=== PATIENT | male | born 1985 | race Caucasian/White ===

== ENCOUNTER 2016-11-30 23:14 | Emergency (ER) | payer MEDICAID ==
[2016-11-30 23:14] VITALS: BMI 28.1
[2016-11-30 23:36] VITALS: BP 124/73; PULSE 70; RESP 20; TEMP 97.9; O2SAT 97
--- NOTE | 2016-12-01 00:04 | C.PDOC ---
History Of Present Illness 31 y/o male with PMHx of herpes simplex presents to ED requesting medication refill. Patient is on Valtrex 1g daily for suppression and states he ran out of medication. Patient is also requesting refill of Mupirocin for his chronic rash. Denies any lesions. Otherwise, patient denies any other complaints. Time Seen by Provider: 11/30/16 23:50 Chief Complaint (Nursing): Abnormal Skin Integrity History Per: Patient History/Exam Limitations: no limitations Onset/Duration Of Symptoms: Persistent Current Symptoms Are (Timing): Still Present Recent travel outside of the [place]: No Past Medical History Reviewed: Historical Data, Nursing Documentation, Vital Signs Vital Signs: Last Vital Signs Temp 97.9 F 11/30/16 23:33 Pulse 70 11/30/16 23:33 Resp 20 11/30/16 23:33 BP 124/73 11/30/16 23:33 Pulse Ox 97 12/01/16 00:12 - Medical History PMH: Sexually Transmitted Disease (PT TAKES VALTREX PRN) Surgical History: Appendectomy - [facility] Procedures APPLICATION OF SPLINT (04/20/15) LAPAROSCOP APPENDECTOMY (10/23/13) SUTURE OF LIP LACERATION (04/20/15) TETANUS TOXOID ADMINIST (04/20/15) Family History: States: Unknown Family Hx - Social History Hx Tobacco Use: Yes Hx Alcohol Use: No Hx Substance Use: No - Immunization History Hx Tetanus Toxoid Vaccination: No Hx Influenza Vaccination: No Hx Pneumococcal Vaccination: No Review Of Systems Except As Marked, All Systems Reviewed And Found Negative. Constitutional: Negative for: Fever, Chills Genitourinary: Negative for: Dysuria, Penile Discharge, Penile Pain Skin: Negative for: Rash Physical Exam - Physical Exam Appears: Non-toxic, No Acute Distress Skin: Normal Color, Warm, Dry, Rash (chronic dry scaly rash with some erythema on arms / hands) Head: Atraumatic, Normacephalic Eye(s): bilateral: Normal Inspection, PERRL Oral Mucosa: Moist Male Genital: Other (patient refuses genital exam) Neurological/Psych: Oriented x3, Normal Speech, Normal Cognition Gait: Steady ED Course And Treatment O2 Sat by Pulse Oximetry: 97 (RA) Pulse Ox Interpretation: Normal Progress Note: On reassessment, patient is resting comfortably, and is in no acute distress. Patient instructed to follow up with clinic/PMD within 1-2 days and advised to take prescribed medications as directed. 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 - Scribe Statement The provider has reviewed the documentation as recorded by the Claude Lynch Provider [place] Attestation: All medical record entries made by the Claude were at my direction and personally dictated by me. I have reviewed the chart and agree that the record accurately reflects my personal performance of the history, physical exam, medical decision making, and the department course for this patient. I have also personally directed, reviewed, and agree with the discharge instructions and disposition.
== END 2016-12-01 00:11 | disposition home or self-care (01) ==
LOC: C.ER 23:14
DX: Z76.0 Encounter for issue of repeat prescription (principal); A60.00 Herpesviral infection of urogenital system, unspecified

== ENCOUNTER 2017-07-24 10:54 | Emergency (ER) | payer MEDICAID ==
[2017-07-24 10:54] VITALS: BMI 28.1
[2017-07-24 11:01] VITALS: O2SAT 100
[2017-07-24 11:28] LABS: URINE BILIRUBIN NEGATIVE (NEGATIVE); URINE BLOOD NEGATIVE (NEGATIVE); URINE COLOR Colorless (YELLOW); URINE GLUCOSE (UA) NORMAL (Normal); URINE KETONE NEGATIVE (NEGATIVE); URINE LEUKOCYTE ESTERASE NEG Leu/uL (Negative); URINE PROTEIN NEGATIVE (NEGATIVE); URINE UROBILINOGEN NORMAL mg/dL (0.2-1.0)
[2017-07-24] MEDS ORDERED: Iohexol 240 (50 ml) PO STA (11:58)
--- NOTE | 2017-07-24 11:58 | C.PDOC ---
History Of Present Illness 31 year old male presents to the ED for recurrent suprapubic discomfort for 1 day. Patient reports intermittent dysuria for 3 months. Patient initially saw PMD for same complaints and was given unknown antibiotics. Patient's symptoms recurred and he followed up with Dr. Coats. He is currently on Bactrim x 6 days. Patient states symptoms initially resolved but have now reoccurred again. Pain is localized and suprapubic, worse with abdominal "crunching" movement. Patient denies dysuria, mass, fever, nausea, vomiting. Past surgical history appendectomy. Patient was tested for GC by PMD, and states "He said it was negative." RECUR SUPRAPUB DISCOMFORT X 1 DAY. INTERMIT DYSURIA 3 MO, INITIALLY SAW PMD FOR SAME GIVEN UNK ABX. SX RECURRED, FU W DR COATS. CURRENTLY ON BACTRIM X 6 DAYS. PS SX INITIALLY RESOLVED BUT NOW RECUR AGAIN. PAIN LOCALIZED SUPRAPUBIC, WORSE W ABD "CRUNCHING" MOVEMENT. NO DYSURIA. NO MASS, FEVER, NV. PSX APPY. PS WAS TESTED FOR GC BY PMD, "HE SAID IT WAS NEGATIVE" EXAM NAD ABD NEG UNCIRCUM NO LESIONS, NO HERNIA REMAINDER NEG Time Seen by Provider: 07/24/17 11:22 Chief Complaint (Nursing): Male Genitourinary History Per: Patient History/Exam Limitations: no limitations Onset/Duration Of Symptoms: Intermittent Episodes, Persistent Current Symptoms Are (Timing): Still Present Quality Of Discomfort: "Pain" Associated Symptoms: denies: Fever, Nausea, Vomiting Additional History Per: Patient Past Medical History Reviewed: Historical Data, Nursing Documentation, Vital Signs Vital Signs: Last Vital Signs Temp 97.6 F 07/24/17 14:41 Pulse 67 07/24/17 14:41 Resp 20 07/24/17 14:41 BP 116/73 07/24/17 14:41 Pulse Ox 100 07/24/17 14:41 - Medical History PMH: Sexually Transmitted Disease (PT TAKES VALTREX PRN) Surgical History: Appendectomy - [facility] Procedures APPLICATION OF SPLINT (04/20/15) LAPAROSCOP APPENDECTOMY (10/23/13) SUTURE OF LIP LACERATION (04/20/15) TETANUS TOXOID ADMINIST (04/20/15) Family History: States: Unknown Family Hx - Social History Hx Tobacco Use: Yes Hx Alcohol Use: No Hx Substance Use: No - Immunization History Hx Tetanus Toxoid Vaccination: No Hx Influenza Vaccination: No Hx Pneumococcal Vaccination: No Review Of Systems Gastrointestinal: Positive for: Abdominal Pain (suprapubic ). Negative for: Nausea, Vomiting, Other (mass) Genitourinary: Negative for: Dysuria Physical Exam - Physical Exam Appears: Non-toxic, No Acute Distress Skin: Normal Color, Warm, Dry Head: Atraumatic, Normacephalic Eye(s): bilateral: Normal Inspection Oral Mucosa: Moist Neck: Supple Chest: Symmetrical, No Deformity, No Tenderness Cardiovascular: Rhythm Regular, No Murmur Respiratory: Normal Breath Sounds, No Rales, No Rhonchi, No Wheezing Gastrointestinal/Abdominal: Soft, No Tenderness, No Guarding, No Rebound Male Genital: No Circumcised, No Other (lesions or hernia ) Extremity: Normal ROM, Capillary Refill (less than 2 seconds ) Neurological/Psych: Oriented x3, Normal Speech, Normal Cognition Gait: Steady ED Course And Treatment - Laboratory Results Result Diagrams: 07/24/17 12:05 07/24/17 12:05 O2 Sat by Pulse Oximetry: 100 (on RA) Pulse Ox Interpretation: Normal - CT Scan/US CT Head Other Rad Studies (CT/US): Read By Radiologist CT/US Interpretation: IMPRESSION: 4 millimeter nonobstructive calculus in the midpole of the right kidney. Moderate fecal retention in the colon. Progress Note: Bloodwork, UA, CT A/P ordered and reviewed. Toradol IVP administered. Progress - Re-Evaluation Re-evaluation Note: 07/24/17 14:31 SP TORADOL FEELS BETTER. APPEARS COMFORTABLE NAD ADVISED FU - Data Reviewed Data Reviewed: Lab, Diagnostic imaging Disposition Counseled Patient/Family Regarding: Studies Performed, Diagnosis, Need For Followup - Disposition Referrals: YOUR,UROLOGIST [Other] Disposition: HOME/ ROUTINE Disposition Time: 14:31 Condition: IMPROVED Instructions: Constipation (ED), High Fiber Diet (ED), Abdominal Pain (ED) Forms: [employer] (Faroese) - Clinical Impression Clinical Impression: Abdominal wall pain, Constipation - Scribe Statement The provider has reviewed the documentation as recorded by the Scribe (Kadie Lee) Provider Attestation: All medical record entries made by the Scribe were at my direction and personally dictated by me. I have reviewed the chart and agree that the record accurately reflects my personal performance of the history, physical exam, medical decision making, and the department course for this patient. I have also personally directed, reviewed, and agree with the discharge instructions and disposition.
[2017-07-24] MEDS ORDERED: Iohexol 240 (50 ml) ONE (12:09)
[2017-07-24 12:10] LABS: BASO % 0.3 % (0.0-2.0); EOS # 0.1 K/uL (0.0-0.7); EOS % 1.3 % (0.0-4.0); HEMATOCRIT 43.7 % (35.0-51.0); LYMPH # 1.8 K/uL (1.0-4.3); LYMPH % 40.5 % (20.0-40.0); MEAN CELL VOLUME 93.9 fL (80.0-94.0); MEAN CORPUSCULAR HEMOGLOBIN 32.3 pg (27.0-31.0); MEAN CORPUSCULAR HGB CONC 34.4 g/dL (33.0-37.0); MEAN PLATELET VOLUME 7.2 fL (7.2-11.7); MONO # 0.4 K/uL (0.0-0.8); NRBC % 0.2 % (0.0-2.0); RED CELL DISTRIBUTION WIDTH 12.7 % (11.5-14.5); WHITE BLOOD COUNT 4.4 K/uL (4.8-10.8)
[2017-07-24 12:21] LABS: BLOOD UREA NITROGEN 11 mg/dL (9-20); CALCIUM 8.6 mg/dl (8.6-10.4); CARBON DIOXIDE 25 mmol/L (22-30); CHLORIDE 98 mmol/L (98-107); GFR AFRICAN-AMERICAN > 60; GLUCOSE,RANDOM 81 mg/dL (75-110); POTASSIUM 4.5 mmol/L (3.6-5.2); SODIUM 135 mmol/L (132-148)
[2017-07-24] MEDS ORDERED: Iohexol 300 100 ML IJ ONE (12:42)
--- NOTE | 2017-07-24 14:26 | CT ---
PROCEDURE: CT Abdomen and Pelvis with contrast HISTORY: Suprapubic abdominal pain COMPARISON: CT dated 10/23/2013 TECHNIQUE: Multiple contiguous axial images were performed through the abdomen and pelvis with the use of intravenous contrast. Subsequently, sagittal and coronal reformatted images were obtained. Radiation dose: Total exam DLP = 419 mGy-cm. This CT exam was performed using one or more of the following dose reduction techniques: Automated exposure control, adjustment of the mA and/or kV according to patient size, and/or use of iterative reconstruction technique. FINDINGS: LOWER THORAX: Unremarkable. LIVER: Heterogeneous attenuation predominantly in the right hepatic lobe of uncertain etiology. This may be related to some streak artifact adjacent contrast in the colon. GALLBLADDER AND BILE DUCTS: Unremarkable. PANCREAS: Unremarkable. No gross lesion or ductal dilatation. SPLEEN: Unremarkable. ADRENALS: Unremarkable. No mass. KIDNEYS AND URETERS: 4 millimeter nonobstructive calculus in the midpole of the right kidney. VASCULATURE: Unremarkable. No aortic aneurysm. BOWEL: Moderate fecal retention in the colon. APPENDIX: Not well identified. PERITONEUM: Unremarkable. No free fluid. No free air. LYMPH NODES: Few shotty para-aortic and mesenteric lymph nodes. BLADDER: Unremarkable. REPRODUCTIVE: Unremarkable. BONES: No acute fracture. OTHER FINDINGS: None. IMPRESSION: 4 millimeter nonobstructive calculus in the midpole of the right kidney. Moderate fecal retention in the colon.
[2017-07-24 14:42] VITALS: BP 116/73; PULSE 67; RESP 20; TEMP 97.6
== END 2017-07-24 14:41 | disposition home or self-care (01) ==
LOC: C.ER 10:54
DX: K59.00 Constipation, unspecified (principal); R10.30 Lower abdominal pain, unspecified
CPT/HCPCS: 74177; 80048; 81001; 85025; 87086; 87491; 87591; 96374; 99284; J1885; Q9966; Q9967

== ENCOUNTER 2018-04-26 05:24 | Emergency (ER) | payer MEDICAID ==
[2018-04-26 05:24] VITALS: BMI 28.1
[2018-04-26 05:35] VITALS: BP 137/93; PULSE 94; RESP 20; TEMP 98.7; O2SAT 96
--- NOTE | 2018-04-26 05:45 | C.PDOC ---
History Of Present Illness 32yo male, comes to ER with complaint of left sided ear discomfort. Patient states he recetnly returned from vacation in [place] and states while there , he was swimming and jet-skiing frequently. He reports feeling clogged/blocked sensation to his left ear and states the discomfort worsened today, prompting ER visit. Otherwise, denies any fever, chills, throat pain, cough, and offers no other complaints. Time Seen by Provider: 04/26/18 05:26 Chief Complaint (Nursing): ENT Problem History Per: Patient History/Exam Limitations: None Onset/Duration Of Symptoms: Days Current Symptoms Are (Timing): Still Present Quality (Ear): Other (fullness/ "clogged") Past Medical History Reviewed: Historical Data, Nursing Documentation, Vital Signs Vital Signs: Last Vital Signs Temp 98.7 F 04/26/18 05:30 Pulse 94 H 04/26/18 05:30 Resp 20 04/26/18 05:30 BP 137/93 H 04/26/18 05:30 Pulse Ox 96 04/26/18 05:53 - Medical History PMH: No Chronic Diseases, Sexually Transmitted Disease (PT TAKES VALTREX PRN) Surgical History: Appendectomy - [facility] Procedures APPLICATION OF SPLINT (04/20/15) LAPAROSCOP APPENDECTOMY (10/23/13) SUTURE OF LIP LACERATION (04/20/15) TETANUS TOXOID ADMINIST (04/20/15) Family History: States: Unknown Family Hx - Social History Hx Tobacco Use: Yes Hx Alcohol Use: No Hx Substance Use: No - Immunization History Hx Tetanus Toxoid Vaccination: No Hx Influenza Vaccination: No Hx Pneumococcal Vaccination: No Review Of Systems Except As Marked, All Systems Reviewed And Found Negative. Constitutional: Negative for: Fever, Chills ENT: Positive for: Other (ear fullness and discomfort). Negative for: Throat Pain Respiratory: Negative for: Cough Physical Exam - Physical Exam Appears: Non-toxic, No Acute Distress Skin: Normal Color, Warm Head: Atraumatic, Normacephalic Eye(s): bilateral: Normal Inspection, PERRL, EOMI Ear(s): Left: Other (dried blood in canal; TM perforated), Right: Normal Nose: Normal, No Discharge Oral Mucosa: Moist Throat: Normal, No Erythema, No Exudate, No Drooling, No Mass Neck: Normal ROM, Supple Chest: Symmetrical Cardiovascular: Rhythm Regular, No Friction Rub, No Murmur Respiratory: Normal Breath Sounds, No Wheezing Neurological/Psych: Oriented x3 ED Course And Treatment O2 Sat by Pulse Oximetry: 96 (RA) Pulse Ox Interpretation: Normal Medical Decision Making Medical Decision Making: Impression: Ruptured eardrum Plan: * Amoxicillin 500mg PO Patient instructed to take antibiotics as prescribed and to follow up with ENT specialist. 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 - Scribe Statement The provider has reviewed the documentation as recorded by the Claude Joe Provider Attestation: All medical record entries made by the Claude were at my direction and personally dictated by me. I have reviewed the chart and agree that the record accurately reflects my personal performance of the history, physical exam, medical decision making, and the department course for this patient. I have also personally directed, reviewed, and agree with the discharge instructions and disposition.
== END 2018-04-26 06:04 | disposition home or self-care (01) ==
LOC: C.ER 05:24
DX: H72.92 Unspecified perforation of tympanic membrane, left ear (principal)

== ENCOUNTER 2018-05-24 14:24 | Emergency (ER) | payer MEDICAID ==
[2018-05-24 14:24] VITALS: BMI 28.1
[2018-05-24 14:30] VITALS: RESP 18; TEMP 98.3; O2SAT 97
--- NOTE | 2018-05-24 15:51 | C.PDOC ---
History Of Present Illness 32 year old male presents to ED for evaluation of left posterior rib pain s/p injury after falling while rollerskating 5 days ago. 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 Denies LOC, SOB, pleuritic pain, head injury, tingling, dizziness, fever, nausea, vomiting and other associated symptoms. Time Seen by Provider: 05/24/18 14:29 Chief Complaint (Nursing): Rib Injury History Per: Patient History/Exam Limitations: no limitations Onset/Duration Of Symptoms: Days Current Symptoms Are (Timing): Still Present Past Medical History Reviewed: Historical Data, Nursing Documentation, Vital Signs Vital Signs: Last Vital Signs Temp 98.3 F 05/24/18 14:28 Pulse 73 05/24/18 14:28 Resp 18 05/24/18 14:28 BP 123/78 05/24/18 14:28 Pulse Ox 97 05/24/18 15:51 - Medical History PMH: Sexually Transmitted Disease (PT TAKES VALTREX PRN) Surgical History: Appendectomy - [facility] Procedures APPLICATION OF SPLINT (04/20/15) LAPAROSCOP APPENDECTOMY (10/23/13) SUTURE OF LIP LACERATION (04/20/15) TETANUS TOXOID ADMINIST (04/20/15) Family History: States: Unknown Family Hx - Social History Hx Tobacco Use: Yes Hx Alcohol Use: No Hx Substance Use: No - Immunization History Hx Tetanus Toxoid Vaccination: No Hx Influenza Vaccination: No Hx Pneumococcal Vaccination: No Review Of Systems Constitutional: Negative for: Fever, Chills Gastrointestinal: Negative for: Nausea, Vomiting Musculoskeletal: Positive for: Other (left posterior rib pain ) Neurological: Negative for: Weakness, Numbness, Incoordination Physical Exam - Physical Exam Appears: Non-toxic, No Acute Distress, Other (comfortable) Skin: Warm, Dry Head: Atraumatic, Normacephalic Chest: Symmetrical, No Deformity, Tenderness (to palpation on the left posterior rib approximately around the 9-10 rib. No crepitus ), No Ecchymosis Cardiovascular: Rhythm Regular Respiratory: Normal Breath Sounds, No Rales, No Rhonchi, No Stridor Extremity: Capillary Refill (less than 2 seconds ), No Deformity, Other (left anterior shoulder 3cm abrasion ) Neurological/Psych: Oriented x3, Normal Speech, Normal Motor, Normal Sensation Gait: Steady ED Course And Treatment O2 Sat by Pulse Oximetry: 97 (RA) Pulse Ox Interpretation: Normal - Other Rad Chest and Ribs Left X-Ray: Viewed By Me, Read By Radiologist Interpretation: FINDINGS: LEFT RIBS: No fracture or focal lesion visualized. LUNGS: No interval alveolitis bilaterally. PLEURA: No pneumothorax or pleural fluid. CARDIOVASCULAR: Normal sized heart. No pulmonary vascular congestion. OTHER FINDINGS: None. IMPRESSION: Unremarkable radiographs of the chest and left ribs. No left rib fracture. No significant interval change compared to 07/03/2016. Progress Note: X-ray of Chest and Left ribs. X-ray reviewed by me. Patient stable for discharge home. Prescribed Ibuprofen. Disposition Counseled Patient/Family Regarding: Studies Performed, Diagnosis, Need For Followup, Rx Given - Disposition Referrals: Shaik Das MD [Staff Provider] - Disposition: HOME/ ROUTINE Disposition Time: 15:50 Condition: STABLE Additional Instructions: FOLLOW UP WITH YOUR DOCTOR IN 1-2 DAYS USE MEDICATION NEEDED FOR PAIN RETURN TO ER IF SYMPTOMS WORSEN Prescriptions: Ibuprofen [Motrin Tab] 600 mg PO Q6 PRN #30 tab PRN Reason: fever/pain Instructions: Bruised Rib (DC) Forms: [employer] (Sami) Print Language: ARMENIAN - POA Present On Arrival: Falls Or Trauma - Clinical Impression Clinical Impression: Rib pain on left side, Rib contusion - Scribe Statement The provider has reviewed the documentation as recorded by the Scribe (Natalie Rainey) Provider Attestation: All medical record entries made by the Scribe were at my direction and personally dictated by me. I have reviewed the chart and agree that the record accurately reflects my personal performance of the history, physical exam, medical decision making, and the department course for this patient. I have also personally directed, reviewed, and agree with the discharge instructions and disposition.
--- NOTE | 2018-05-24 15:55 | RAD ---
Date of service: 05/24/2018 PROCEDURE: Radiographs of the Chest and Left Ribs. HISTORY: left posterior rib pain after fall, r/o fx COMPARISON: Left ribs with chest radiograph 07/03/2016.. TECHNIQUE: Frontal radiograph of the chest and multiple oblique radiographs of the left ribs were obtained. FINDINGS: LEFT RIBS: No fracture or focal lesion visualized. LUNGS: No interval alveolitis bilaterally. PLEURA: No pneumothorax or pleural fluid. CARDIOVASCULAR: Normal sized heart. No pulmonary vascular congestion. OTHER FINDINGS: None. IMPRESSION: Unremarkable radiographs of the chest and left ribs. No left rib fracture. No significant interval change compared to 07/03/2016.
[2018-05-24 16:03] VITALS: BP 120/72; PULSE 68
== END 2018-05-24 16:03 | disposition home or self-care (01) ==
LOC: C.ER 14:24
DX: S20.212A Contusion of left front wall of thorax, initial encounter (principal); V00.128A Other non-in-line roller-skating accident, initial encounter; Y93.51 Activity, roller skating (inline) and skateboarding; R07.81 Pleurodynia